=== PATIENT | male | born 1955 | race Caucasian/White ===

== ENCOUNTER 2017-02-11 00:19 | Inpatient (IN) | payer MEDICAID ==
[2017-02-11 01:26] LABS: BASO % 0.1 % (0-2); HCT-HEMATOCRIT 32.8 % (36.0-53.5); HGB-HEMOGLOBIN 11.2 gm/dl (13.5-17.0); IMMATURE GRANULOCYTES ABSOLUTE 0.07 tho/cmm (0-0.03); IMMATURE GRANULOCYTES PERCENT 0.5 % (0-0.3); LYMPH % 3.8 % (20-45); LYMPH ABSOLUTE COUNT 0.6 tho/cmm (0.8-4.5); MCH (MEAN CORPUSCULAR HGB) 29.6 pg (28.0-32.0); MCHC MEAN CORPUSCULAR HGB CONC 34.1 % (32.0-36.0); MCV (MEAN CELL VOLUME) 86.5 fl (82.0-96.0); MONO % 4.5 % (0-12); MONOCYTE ABSOLUTE COUNT 0.7 tho/cmm (0.0-1.2); NEUTROPHIL ABSOLUTE COUNT 13.8 tho/cmm (1.6-8.0); NEUTROPHIL-AUTOMATED 13.8 tho/cmm (1.6-8.0); NEUTROPHILS % 91.1 % (40-80); PLATELET COUNT 189 tho/cmm (150-450); RED BLOOD COUNT 3.79 mil/cmm (4.40-5.70); RED CELL DISTRIBUTION WIDTH 14.3 % (12.4-16.4); WHITE BLOOD COUNT 15.2 tho/cmm (4.0-10.0)
[2017-02-11 01:29] LABS: ABG CO2 ARTERIAL 19 mmol/L (21-27); ARTERIAL BLD GAS O2 SATURATION 93 % (95-98); ARTERIAL BLOOD GAS PCO2 27 mmHg (32-45); ARTERIAL PO2 63 mmHg (70-100); BICARBONATE 19 mmol/L (21-28); BLOOD GAS BASE EXCESS -4 mM/L (-/+3); PH 7.45 Units (7.35-7.45)
[2017-02-11 01:32] LABS: INR 1.2 INR (0.9-1.1); PROTHROMBIN TIME 13.8 SECONDS (9.0-13.6)
[2017-02-11 01:41] LABS: ALB/GLOB RATIO 0.6 (0.8-2.0); ALBUMIN 2.4 g/dl (3.5-5.0); ALKALINE PHOSPHATASE 71 U/L (33-138); ALT/SGPT 55 U/L (12-78); ANION GAP 18 mmol/L (0-20); AST/SGOT 137 U/L (10-40); BILIRUBIN,TOTAL 0.8 mg/dl (0.0-1.5); BLOOD UREA NITROGEN 47 mg/dl (6-24); CALCIUM 7.6 mg/dl (8.5-10.5); CARBON DIOXIDE-VENOUS 19 mmol/L (22-32); CHLORIDE 106 mmol/l (96-110); CREATININE 1.77 mg/dl (0.60-1.30); GLUCOSE 185 mg/dL (70-110); POTASSIUM 4.2 mmol/L (3.7-5.1); SODIUM 139 mmol/L (135-145); eGFR VALUE FOR BLACK 47 mL/Min
[2017-02-11 02:05] LABS: PROCALCITONIN 31.96 ng/ml (0.05-0.09)
[2017-02-11] MEDS ORDERED: ASPIRIN81 M1 PO (03:11)
[2017-02-11] MEDS ORDERED: ACTOS30 M1 PO (03:11)
[2017-02-11] MEDS ORDERED: CERTAVITE-ANTI1 EACH PO (03:13)
[2017-02-11] MEDS ORDERED: CLOZARIL100 M1 PO ×2 (03:13→03:14)
[2017-02-11] MEDS ORDERED: COLACE100 M1 PO (03:14)
[2017-02-11] MEDS ORDERED: FLONASE ALLERG9.9 ML (03:16)
[2017-02-11] MEDS ORDERED: CYCLOBENZAPRINE5 M1 PO (03:16)
[2017-02-11] MEDS ORDERED: HYDROCHLOROTH12.5 M2 PO (03:17)
[2017-02-11] MEDS ORDERED: HYDROCORTISONE30 G8 (03:18)
[2017-02-11] MEDS ORDERED: VISTARIL25 M1 PO (03:20)
[2017-02-11] MEDS ORDERED: KENALOG 0.1% CREAM (03:21)
[2017-02-11] MEDS ORDERED: [UNRECOGNIZED DRUG - OTHER] (03:22)
[2017-02-11] MEDS ORDERED: GLUCOPHAGE500 M3 PO (03:24)
[2017-02-11] MEDS ORDERED: METAMUCIL660 GM (03:24)
[2017-02-11] MEDS ORDERED: MILK OF MAGNESIA PO (03:26)
[2017-02-11] MEDS ORDERED: MOBIC7.5 M2 PO (03:26)
[2017-02-11] MEDS ORDERED: NASONEX17 G1 (03:28)
[2017-02-11] MEDS ORDERED: DAILY MULTIPLE1 EAC2 PO (03:28)
[2017-02-11] MEDS ORDERED: PROAIR HFA8.5 GM IH (03:29)
[2017-02-11] MEDS ORDERED: TYLENOL EXTRA500 M1 PO (03:30)
[2017-02-11] MEDS ORDERED: TRANXENE T PO (03:30)
[2017-02-11] MEDS ORDERED: ASTELIN SPRAY (03:32)
[2017-02-11 04:33] LABS: URINE BILIRUBIN NEGATIVE (NEG); URINE BLOOD LARGE (NEG); URINE GLUCOSE (UA) NEGATIVE (NEG); URINE KETONE SMALL (NEG); URINE LEUKOCYTE ESTERASE NEGATIVE (NEG); URINE NITRITE NEGATIVE (NEG); URINE PROTEIN MODERATE (NEG); URINE SPECIFIC GRAVITY 1.015 (1.003-1.030)
[2017-02-11 04:37] LABS: URINE APPEARANCE HAZY; URINE COLOR YELLOW
[2017-02-11 04:39] LABS: URINE EPITHELIAL CELLS 0 /[HPF] (0-10); URINE WBC 0-1 /[HPF] (0-5)
[2017-02-11 05:30] LABS: BASO % 0.1 % (0-2); HGB-HEMOGLOBIN 10.9 gm/dl (13.5-17.0); IMMATURE GRANULOCYTES ABSOLUTE 0.04 tho/cmm (0-0.03); IMMATURE GRANULOCYTES PERCENT 0.3 % (0-0.3); LYMPH % 3.9 % (20-45); LYMPH ABSOLUTE COUNT 0.5 tho/cmm (0.8-4.5); MCH (MEAN CORPUSCULAR HGB) 29.5 pg (28.0-32.0); MCHC MEAN CORPUSCULAR HGB CONC 34.1 % (32.0-36.0); MCV (MEAN CELL VOLUME) 86.5 fl (82.0-96.0); MEAN PLATELET VOLUME 9.6 cmc (9.4-12.4); MONO % 5.5 % (0-12); MONOCYTE ABSOLUTE COUNT 0.8 tho/cmm (0.0-1.2); NEUTROPHIL ABSOLUTE COUNT 12.5 tho/cmm (1.6-8.0); NEUTROPHIL-AUTOMATED 12.5 tho/cmm (1.6-8.0); NEUTROPHILS % 90.2 % (40-80); PLATELET COUNT 176 tho/cmm (150-450); RED CELL DISTRIBUTION WIDTH 14.5 % (12.4-16.4); WHITE BLOOD COUNT 13.9 tho/cmm (4.0-10.0)
[2017-02-11 05:41] LABS: ANION GAP 15 mmol/L (0-20); BLOOD UREA NITROGEN 49 mg/dl (6-24); CALCIUM 7.7 mg/dl (8.5-10.5); CARBON DIOXIDE-VENOUS 20 mmol/L (22-32); CHLORIDE 105 mmol/l (96-110); CREATININE 1.48 mg/dl (0.60-1.30); GLUCOSE 188 mg/dL (70-110); MAGNESIUM 3.1 mg/dl (1.8-2.6); PHOSPHOROUS 2.9 mg/dl (2.5-4.9); SODIUM 136 mmol/L (135-145); eGFR VALUE FOR BLACK 59 mL/Min
[2017-02-11 06:07] LABS: ABG CO2 ARTERIAL 21 mmol/L (21-27); ARTERIAL BLD GAS O2 SATURATION 96 % (95-98); ARTERIAL BLOOD GAS PCO2 31 mmHg (32-45); BICARBONATE 20 mmol/L (21-28); BLOOD GAS BASE EXCESS -4 mM/L (-/+3); PH 7.42 Units (7.35-7.45)
[2017-02-11 06:08] LABS: ARTERIAL PO2 81 mmHg (70-100)
[2017-02-12 07:58] LABS: BASO % 0.1 % (0-2); HCT-HEMATOCRIT 32.8 % (36.0-53.5); IMMATURE GRANULOCYTES ABSOLUTE 0.15 tho/cmm (0-0.03); IMMATURE GRANULOCYTES PERCENT 1.1 % (0-0.3); LYMPH % 3.3 % (20-45); LYMPH ABSOLUTE COUNT 0.4 tho/cmm (0.8-4.5); MCH (MEAN CORPUSCULAR HGB) 29.3 pg (28.0-32.0); MCHC MEAN CORPUSCULAR HGB CONC 33.5 % (32.0-36.0); MCV (MEAN CELL VOLUME) 87.5 fl (82.0-96.0); MONO % 5.7 % (0-12); MONOCYTE ABSOLUTE COUNT 0.8 tho/cmm (0.0-1.2); NEUTROPHIL ABSOLUTE COUNT 11.9 tho/cmm (1.6-8.0); NEUTROPHIL-AUTOMATED 11.9 tho/cmm (1.6-8.0); NEUTROPHILS % 89.8 % (40-80); PLATELET COUNT 204 tho/cmm (150-450); RED BLOOD COUNT 3.75 mil/cmm (4.40-5.70); RED CELL DISTRIBUTION WIDTH 14.9 % (12.4-16.4); WHITE BLOOD COUNT 13.3 tho/cmm (4.0-10.0)
[2017-02-12 08:10] LABS: ANION GAP 14 mmol/L (0-20); BLOOD UREA NITROGEN 39 mg/dl (6-24); CALCIUM 7.9 mg/dl (8.5-10.5); CARBON DIOXIDE-VENOUS 20 mmol/L (22-32); CHLORIDE 109 mmol/l (96-110); CREATININE 1.06 mg/dl (0.60-1.30); GLUCOSE 221 mg/dL (70-110); POTASSIUM 4.2 mmol/L (3.7-5.1); SODIUM 139 mmol/L (135-145); eGFR VALUE FOR BLACK 88 mL/Min
[2017-02-12 11:18] LABS: C-REACTIVE PROTEIN 14.9 mg/dl (0-0.9)
[2017-02-12 11:30] LABS: CREATINE PHOSPHOKINASE (CPK) 1586 U/L (35-232)
[2017-02-12 11:31] LABS: PROCALCITONIN 7.34 ng/ml (0.05-0.09)
[2017-02-13 05:46] LABS: HCT-HEMATOCRIT 32.7 % (36.0-53.5); HGB-HEMOGLOBIN 10.8 gm/dl (13.5-17.0); MCV (MEAN CELL VOLUME) 87.9 fl (82.0-96.0); MEAN PLATELET VOLUME 9.9 cmc (9.4-12.4); NEUTROPHIL-AUTOMATED 12.7 tho/cmm (1.6-8.0); PLATELET COUNT 210 tho/cmm (150-450); RED BLOOD COUNT 3.72 mil/cmm (4.40-5.70); RED CELL DISTRIBUTION WIDTH 15.1 % (12.4-16.4); WHITE BLOOD COUNT 14.9 tho/cmm (4.0-10.0)
[2017-02-13 05:57] LABS: ALB/GLOB RATIO 0.4 (0.8-2.0); ALBUMIN 1.9 g/dl (3.5-5.0); ALKALINE PHOSPHATASE 83 U/L (33-138); ALT/SGPT 58 U/L (12-78); ANION GAP 12 mmol/L (0-20); AST/SGOT 56 U/L (10-40); BILIRUBIN,TOTAL 0.5 mg/dl (0.0-1.5); BLOOD UREA NITROGEN 34 mg/dl (6-24); CALCIUM 7.5 mg/dl (8.5-10.5); CARBON DIOXIDE-VENOUS 22 mmol/L (22-32); CHLORIDE 105 mmol/l (96-110); CREATININE 0.87 mg/dl (0.60-1.30); GLUCOSE 200 mg/dL (70-110); POTASSIUM 4.2 mmol/L (3.7-5.1); SODIUM 135 mmol/L (135-145); eGFR VALUE FOR BLACK >90 mL/Min
[2017-02-13 06:03] LABS: C-REACTIVE PROTEIN 23.7 mg/dl (0-0.9)
[2017-02-13 06:31] LABS: PROCALCITONIN 9.37 ng/ml (0.05-0.09)
[2017-02-13 09:45] LABS: BAND % 48 % (0-20); BAND ABSOLUTE COUNT 7.2 tho/cmm (0-2.0)
[2017-02-14 05:59] LABS: HCT-HEMATOCRIT 33.2 % (36.0-53.5); MCH (MEAN CORPUSCULAR HGB) 28.9 pg (28.0-32.0); MCHC MEAN CORPUSCULAR HGB CONC 33.1 % (32.0-36.0); MCV (MEAN CELL VOLUME) 87.4 fl (82.0-96.0); MEAN PLATELET VOLUME 9.8 cmc (9.4-12.4); NEUTROPHIL-AUTOMATED 19.5 tho/cmm (1.6-8.0); PLATELET COUNT 286 tho/cmm (150-450); RED CELL DISTRIBUTION WIDTH 15.1 % (12.4-16.4)
[2017-02-14 06:08] LABS: WHITE BLOOD COUNT 22.7 tho/cmm (4.0-10.0)
[2017-02-14 06:19] LABS: ALBUMIN 1.8 g/dl (3.5-5.0); ANION GAP 11 mmol/L (0-20); BLOOD UREA NITROGEN 35 mg/dl (6-24); C-REACTIVE PROTEIN 16.9 mg/dl (0-0.9); CALCIUM 7.4 mg/dl (8.5-10.5); CARBON DIOXIDE-VENOUS 24 mmol/L (22-32); CHLORIDE 106 mmol/l (96-110); CREATININE 0.87 mg/dl (0.60-1.30); GLUCOSE 213 mg/dL (70-110); PHOSPHOROUS 1.9 mg/dl (2.5-4.9); POTASSIUM 4.2 mmol/L (3.7-5.1); PREALBUMIN 4.8 mg/dl (20.0-40.0); SODIUM 137 mmol/L (135-145); eGFR VALUE FOR BLACK >90 mL/Min
[2017-02-14 06:20] LABS: CREATINE PHOSPHOKINASE (CPK) 512 U/L (35-232)
[2017-02-14 06:23] LABS: PROCALCITONIN 6.21 ng/ml (0.05-0.09)
[2017-02-14 08:35] LABS: BAND % 47 % (0-20); BAND ABSOLUTE COUNT 10.7 tho/cmm (0-2.0)
[2017-02-15 05:45] LABS: HCT-HEMATOCRIT 34.2 % (36.0-53.5); HGB-HEMOGLOBIN 11.2 gm/dl (13.5-17.0); MCH (MEAN CORPUSCULAR HGB) 28.6 pg (28.0-32.0); MCHC MEAN CORPUSCULAR HGB CONC 32.7 % (32.0-36.0); MCV (MEAN CELL VOLUME) 87.5 fl (82.0-96.0); MEAN PLATELET VOLUME 9.4 cmc (9.4-12.4); NEUTROPHIL-AUTOMATED 26.5 tho/cmm (1.6-8.0); PLATELET COUNT 344 tho/cmm (150-450); RED BLOOD COUNT 3.91 mil/cmm (4.40-5.70); RED CELL DISTRIBUTION WIDTH 15.3 % (12.4-16.4); WHITE BLOOD COUNT 31.8 tho/cmm (4.0-10.0)
[2017-02-15 06:01] LABS: C-REACTIVE PROTEIN 12.5 mg/dl (0-0.9); CREATININE 0.88 mg/dl (0.60-1.30); eGFR VALUE FOR BLACK >90 mL/Min
[2017-02-15 06:12] LABS: CREATINE PHOSPHOKINASE (CPK) 315 U/L (35-232)
[2017-02-15 06:14] LABS: BAND % 49 % (0-20); BAND ABSOLUTE COUNT 15.6 tho/cmm (0-2.0)
[2017-02-15 06:22] LABS: PROCALCITONIN 3.94 ng/ml (0.05-0.09)
[2017-02-16 05:21] LABS: HGB-HEMOGLOBIN 11.4 gm/dl (13.5-17.0); MCH (MEAN CORPUSCULAR HGB) 29.2 pg (28.0-32.0); MCHC MEAN CORPUSCULAR HGB CONC 32.6 % (32.0-36.0); MCV (MEAN CELL VOLUME) 89.5 fl (82.0-96.0); MEAN PLATELET VOLUME 9.7 cmc (9.4-12.4); NEUTROPHIL-AUTOMATED 27.5 tho/cmm (1.6-8.0); PLATELET COUNT 460 tho/cmm (150-450); RED BLOOD COUNT 3.91 mil/cmm (4.40-5.70); RED CELL DISTRIBUTION WIDTH 15.2 % (12.4-16.4); WHITE BLOOD COUNT 31.7 tho/cmm (4.0-10.0)
[2017-02-16 05:33] LABS: C-REACTIVE PROTEIN 8.7 mg/dl (0-0.9)
[2017-02-16 05:39] LABS: CREATINE PHOSPHOKINASE (CPK) 225 U/L (35-232)
[2017-02-16 05:52] LABS: PROCALCITONIN 2.22 ng/ml (0.05-0.09)
[2017-02-16 06:55] LABS: BAND % 25 % (0-20); BAND ABSOLUTE COUNT 7.9 tho/cmm (0-2.0)
[2017-02-16 06:56] LABS: WBC MORPHOLOGY TOXIC GRANULATION
[2017-02-17 04:28] LABS: HCT-HEMATOCRIT 34.1 % (36.0-53.5); HGB-HEMOGLOBIN 11.1 gm/dl (13.5-17.0); MCHC MEAN CORPUSCULAR HGB CONC 32.6 % (32.0-36.0); MEAN PLATELET VOLUME 9.6 cmc (9.4-12.4); PLATELET COUNT 393 tho/cmm (150-450); RED BLOOD COUNT 3.83 mil/cmm (4.40-5.70); RED CELL DISTRIBUTION WIDTH 15.4 % (12.4-16.4); WHITE BLOOD COUNT 25.8 tho/cmm (4.0-10.0)
[2017-02-17 05:06] LABS: C-REACTIVE PROTEIN 4.4 mg/dl (0-0.9)
[2017-02-17 05:19] LABS: CREATINE PHOSPHOKINASE (CPK) 161 U/L (35-232)
[2017-02-17 06:00] LABS: PROCALCITONIN 1.05 ng/ml (0.05-0.09)
[2017-02-17 06:49] LABS: BAND % 29 % (0-20); BAND ABSOLUTE COUNT 7.5 tho/cmm (0-2.0)
[2017-02-17 06:50] LABS: WBC MORPHOLOGY TOXIC GRANULATION
[2017-02-18 04:50] LABS: HCT-HEMATOCRIT 34.3 % (36.0-53.5); HGB-HEMOGLOBIN 10.9 gm/dl (13.5-17.0); MCH (MEAN CORPUSCULAR HGB) 28.5 pg (28.0-32.0); MCHC MEAN CORPUSCULAR HGB CONC 31.8 % (32.0-36.0); MCV (MEAN CELL VOLUME) 89.8 fl (82.0-96.0); MEAN PLATELET VOLUME 9.5 cmc (9.4-12.4); NEUTROPHIL-AUTOMATED 17.4 tho/cmm (1.6-8.0); PLATELET COUNT 404 tho/cmm (150-450); RED BLOOD COUNT 3.82 mil/cmm (4.40-5.70); RED CELL DISTRIBUTION WIDTH 15.5 % (12.4-16.4); WHITE BLOOD COUNT 22.3 tho/cmm (4.0-10.0)
[2017-02-18 05:01] LABS: C-REACTIVE PROTEIN 2.7 mg/dl (0-0.9)
[2017-02-18 05:12] LABS: BASO % 0.3 % (0-2); BASO ABSOLUTE COUNT 0.1 tho/cmm (0.0-0.2); IMMATURE GRANULOCYTES PERCENT 7.2 % (0-0.3); LYMPH ABSOLUTE COUNT 1.6 tho/cmm (0.8-4.5); MONO % 7.2 % (0-12); MONOCYTE ABSOLUTE COUNT 1.6 tho/cmm (0.0-1.2); NEUTROPHIL ABSOLUTE COUNT 17.4 tho/cmm (1.6-8.0); NEUTROPHILS % 78.3 % (40-80)
[2017-02-19 04:55] LABS: HCT-HEMATOCRIT 33.4 % (36.0-53.5); HGB-HEMOGLOBIN 10.7 gm/dl (13.5-17.0); MCH (MEAN CORPUSCULAR HGB) 28.7 pg (28.0-32.0); MCV (MEAN CELL VOLUME) 89.5 fl (82.0-96.0); MEAN PLATELET VOLUME 9.7 cmc (9.4-12.4); NEUTROPHIL-AUTOMATED 16.5 tho/cmm (1.6-8.0); PLATELET COUNT 400 tho/cmm (150-450); RED BLOOD COUNT 3.73 mil/cmm (4.40-5.70); RED CELL DISTRIBUTION WIDTH 15.2 % (12.4-16.4); WHITE BLOOD COUNT 20.4 tho/cmm (4.0-10.0)
[2017-02-19 05:04] LABS: BASO % 0.1 % (0-2); IMMATURE GRANULOCYTES ABSOLUTE 1.21 tho/cmm (0-0.03); IMMATURE GRANULOCYTES PERCENT 5.9 % (0-0.3); LYMPH % 6.7 % (20-45); LYMPH ABSOLUTE COUNT 1.4 tho/cmm (0.8-4.5); MONO % 6.8 % (0-12); MONOCYTE ABSOLUTE COUNT 1.4 tho/cmm (0.0-1.2); NEUTROPHIL ABSOLUTE COUNT 16.5 tho/cmm (1.6-8.0); NEUTROPHILS % 80.5 % (40-80)
[2017-02-19 05:10] LABS: C-REACTIVE PROTEIN 2.1 mg/dl (0-0.9)
[2017-02-19 07:52] LABS: WBC MORPHOLOGY TOXIC GRANULATION
[2017-02-19 12:02] LABS: BASO % 0.1 % (0-2); HCT-HEMATOCRIT 34.1 % (36.0-53.5); HGB-HEMOGLOBIN 11.2 gm/dl (13.5-17.0); IMMATURE GRANULOCYTES ABSOLUTE 0.96 tho/cmm (0-0.03); IMMATURE GRANULOCYTES PERCENT 4.9 % (0-0.3); LYMPH % 6.5 % (20-45); LYMPH ABSOLUTE COUNT 1.3 tho/cmm (0.8-4.5); MCH (MEAN CORPUSCULAR HGB) 29.2 pg (28.0-32.0); MCHC MEAN CORPUSCULAR HGB CONC 32.8 % (32.0-36.0); MCV (MEAN CELL VOLUME) 88.8 fl (82.0-96.0); MEAN PLATELET VOLUME 9.4 cmc (9.4-12.4); MONO % 6.8 % (0-12); MONOCYTE ABSOLUTE COUNT 1.3 tho/cmm (0.0-1.2); NEUTROPHILS % 81.7 % (40-80); PLATELET COUNT 362 tho/cmm (150-450); RED BLOOD COUNT 3.84 mil/cmm (4.40-5.70); RED CELL DISTRIBUTION WIDTH 15.3 % (12.4-16.4); WHITE BLOOD COUNT 19.6 tho/cmm (4.0-10.0)
[2017-02-19 12:07] LABS: INR 1.2 INR (0.9-1.1); PROTHROMBIN TIME 13.8 SECONDS (9.0-13.6)
[2017-02-20 04:10] LABS: HCT-HEMATOCRIT 32.8 % (36.0-53.5); HGB-HEMOGLOBIN 10.7 gm/dl (13.5-17.0); MCHC MEAN CORPUSCULAR HGB CONC 32.6 % (32.0-36.0); MCV (MEAN CELL VOLUME) 88.9 fl (82.0-96.0); MEAN PLATELET VOLUME 9.4 cmc (9.4-12.4); NEUTROPHIL-AUTOMATED 10.8 tho/cmm (1.6-8.0); PLATELET COUNT 372 tho/cmm (150-450); RED BLOOD COUNT 3.69 mil/cmm (4.40-5.70)
[2017-02-20 04:23] LABS: ALBUMIN 2.1 g/dl (3.5-5.0); ANION GAP 11 mmol/L (0-20); BLOOD UREA NITROGEN 16 mg/dl (6-24); C-REACTIVE PROTEIN 1.9 mg/dl (0-0.9); CALCIUM 7.6 mg/dl (8.5-10.5); CARBON DIOXIDE-VENOUS 27 mmol/L (22-32); CHLORIDE 107 mmol/l (96-110); CREATININE 0.54 mg/dl (0.60-1.30); GLUCOSE 128 mg/dL (70-110); PHOSPHOROUS 3.5 mg/dl (2.5-4.9); POTASSIUM 3.4 mmol/L (3.7-5.1); SODIUM 142 mmol/L (135-145); eGFR VALUE FOR BLACK >90 mL/Min
[2017-02-20 04:59] LABS: CREATINE PHOSPHOKINASE (CPK) 147 U/L (35-232)
[2017-02-20 07:13] LABS: BAND % 38 % (0-20); BAND ABSOLUTE COUNT 5.3 tho/cmm (0-2.0)
[2017-02-20 07:15] LABS: WBC MORPHOLOGY TOXIC GRANULATION
[2017-02-22 05:57] LABS: BASO % 0.3 % (0-2); HCT-HEMATOCRIT 31.6 % (36.0-53.5); HGB-HEMOGLOBIN 10.2 gm/dl (13.5-17.0); IMMATURE GRANULOCYTES ABSOLUTE 0.21 tho/cmm (0-0.03); IMMATURE GRANULOCYTES PERCENT 1.9 % (0-0.3); LYMPH % 12.3 % (20-45); LYMPH ABSOLUTE COUNT 1.4 tho/cmm (0.8-4.5); MCH (MEAN CORPUSCULAR HGB) 28.6 pg (28.0-32.0); MCHC MEAN CORPUSCULAR HGB CONC 32.3 % (32.0-36.0); MCV (MEAN CELL VOLUME) 88.5 fl (82.0-96.0); MEAN PLATELET VOLUME 9.9 cmc (9.4-12.4); MONO % 7.6 % (0-12); MONOCYTE ABSOLUTE COUNT 0.8 tho/cmm (0.0-1.2); NEUTROPHIL ABSOLUTE COUNT 8.6 tho/cmm (1.6-8.0); NEUTROPHIL-AUTOMATED 8.6 tho/cmm (1.6-8.0); NEUTROPHILS % 77.9 % (40-80); PLATELET COUNT 343 tho/cmm (150-450); RED BLOOD COUNT 3.57 mil/cmm (4.40-5.70); RED CELL DISTRIBUTION WIDTH 14.9 % (12.4-16.4)
[2017-02-22 06:13] LABS: ALB/GLOB RATIO 0.6 (0.8-2.0); ALBUMIN 2.1 g/dl (3.5-5.0); ALKALINE PHOSPHATASE 61 U/L (33-138); ALT/SGPT 28 U/L (12-78); ANION GAP 10 mmol/L (0-20); AST/SGOT 22 U/L (10-40); BILIRUBIN,TOTAL 0.2 mg/dl (0.0-1.5); BLOOD UREA NITROGEN 12 mg/dl (6-24); C-REACTIVE PROTEIN 1.2 mg/dl (0-0.9); CALCIUM 7.7 mg/dl (8.5-10.5); CARBON DIOXIDE-VENOUS 29 mmol/L (22-32); CHLORIDE 100 mmol/l (96-110); CREATININE 0.49 mg/dl (0.60-1.30); GLUCOSE 148 mg/dL (70-110); PHOSPHOROUS 3.5 mg/dl (2.5-4.9); POTASSIUM 3.5 mmol/L (3.7-5.1); SODIUM 135 mmol/L (135-145); eGFR VALUE FOR BLACK >90 mL/Min
[2017-02-22 07:31] LABS: PROCALCITONIN 0.11 ng/ml (0.05-0.09)
[2017-02-24 05:13] LABS: BASO % 0.3 % (0-2); HGB-HEMOGLOBIN 10.4 gm/dl (13.5-17.0); LYMPH % 11.7 % (20-45); LYMPH ABSOLUTE COUNT 1.2 tho/cmm (0.8-4.5); MCH (MEAN CORPUSCULAR HGB) 28.6 pg (28.0-32.0); MCHC MEAN CORPUSCULAR HGB CONC 32.5 % (32.0-36.0); MCV (MEAN CELL VOLUME) 87.9 fl (82.0-96.0); MEAN PLATELET VOLUME 9.3 cmc (9.4-12.4); MONO % 7.8 % (0-12); MONOCYTE ABSOLUTE COUNT 0.8 tho/cmm (0.0-1.2); NEUTROPHIL ABSOLUTE COUNT 8.1 tho/cmm (1.6-8.0); NEUTROPHIL-AUTOMATED 8.1 tho/cmm (1.6-8.0); NEUTROPHILS % 79.2 % (40-80); PLATELET COUNT 342 tho/cmm (150-450); RED BLOOD COUNT 3.64 mil/cmm (4.40-5.70); RED CELL DISTRIBUTION WIDTH 14.9 % (12.4-16.4); WHITE BLOOD COUNT 10.2 tho/cmm (4.0-10.0)
[2017-02-25] MEDS ORDERED: SINGULAIR10 M1 PO (07:53)
[2017-02-25] MEDS ORDERED: LISINOPRIL10 M1 PO (07:53)
[2017-02-25] MEDS ORDERED: ZOCOR10 M1 PO (07:54)
[2017-02-26 05:44] LABS: BASO % 0.3 % (0-2); HCT-HEMATOCRIT 31.9 % (36.0-53.5); HGB-HEMOGLOBIN 10.3 gm/dl (13.5-17.0); IMMATURE GRANULOCYTES ABSOLUTE 0.05 tho/cmm (0-0.03); IMMATURE GRANULOCYTES PERCENT 0.5 % (0-0.3); LYMPH % 12.7 % (20-45); LYMPH ABSOLUTE COUNT 1.2 tho/cmm (0.8-4.5); MCH (MEAN CORPUSCULAR HGB) 28.9 pg (28.0-32.0); MCHC MEAN CORPUSCULAR HGB CONC 32.3 % (32.0-36.0); MCV (MEAN CELL VOLUME) 89.4 fl (82.0-96.0); MEAN PLATELET VOLUME 9.3 cmc (9.4-12.4); MONO % 8.9 % (0-12); MONOCYTE ABSOLUTE COUNT 0.8 tho/cmm (0.0-1.2); NEUTROPHIL ABSOLUTE COUNT 7.1 tho/cmm (1.6-8.0); NEUTROPHIL-AUTOMATED 7.1 tho/cmm (1.6-8.0); NEUTROPHILS % 77.6 % (40-80); PLATELET COUNT 350 tho/cmm (150-450); RED BLOOD COUNT 3.57 mil/cmm (4.40-5.70); RED CELL DISTRIBUTION WIDTH 15.3 % (12.4-16.4); WHITE BLOOD COUNT 9.2 tho/cmm (4.0-10.0)
[2017-02-26 06:01] LABS: ALB/GLOB RATIO 0.5 (0.8-2.0); ALBUMIN 2.2 g/dl (3.5-5.0); ALKALINE PHOSPHATASE 65 U/L (33-138); ALT/SGPT 28 U/L (12-78); ANION GAP 10 mmol/L (0-20); AST/SGOT 20 U/L (10-40); BILIRUBIN,TOTAL 0.3 mg/dl (0.0-1.5); BLOOD UREA NITROGEN 9 mg/dl (6-24); C-REACTIVE PROTEIN 2.3 mg/dl (0-0.9); CARBON DIOXIDE-VENOUS 32 mmol/L (22-32); CHLORIDE 104 mmol/l (96-110); CREATININE 0.62 mg/dl (0.60-1.30); GLUCOSE 145 mg/dL (70-110); POTASSIUM 3.7 mmol/L (3.7-5.1); SODIUM 142 mmol/L (135-145); eGFR VALUE FOR BLACK >90 mL/Min
[2017-02-28 04:47] LABS: BASO % 0.5 % (0-2); EOS % 0.1 % (0-7); HCT-HEMATOCRIT 31.2 % (36.0-53.5); HGB-HEMOGLOBIN 10.1 gm/dl (13.5-17.0); IMMATURE GRANULOCYTES ABSOLUTE 0.03 tho/cmm (0-0.03); IMMATURE GRANULOCYTES PERCENT 0.4 % (0-0.3); LYMPH % 19.8 % (20-45); LYMPH ABSOLUTE COUNT 1.5 tho/cmm (0.8-4.5); MCH (MEAN CORPUSCULAR HGB) 28.9 pg (28.0-32.0); MCHC MEAN CORPUSCULAR HGB CONC 32.4 % (32.0-36.0); MCV (MEAN CELL VOLUME) 89.4 fl (82.0-96.0); MONO % 8.4 % (0-12); MONOCYTE ABSOLUTE COUNT 0.6 tho/cmm (0.0-1.2); NEUTROPHIL ABSOLUTE COUNT 5.3 tho/cmm (1.6-8.0); NEUTROPHIL-AUTOMATED 5.3 tho/cmm (1.6-8.0); NEUTROPHILS % 70.8 % (40-80); PLATELET COUNT 321 tho/cmm (150-450); RED BLOOD COUNT 3.49 mil/cmm (4.40-5.70); RED CELL DISTRIBUTION WIDTH 15.2 % (12.4-16.4); WHITE BLOOD COUNT 7.5 tho/cmm (4.0-10.0)
[2017-03-02 05:22] LABS: HGB-HEMOGLOBIN 10.5 gm/dl (13.5-17.0); PLATELET COUNT 270 tho/cmm (150-450)
[2017-03-03 05:08] LABS: BASO % 0.6 % (0-2); HCT-HEMATOCRIT 33.5 % (36.0-53.5); HGB-HEMOGLOBIN 10.9 gm/dl (13.5-17.0); IMMATURE GRANULOCYTES ABSOLUTE 0.03 tho/cmm (0-0.03); IMMATURE GRANULOCYTES PERCENT 0.4 % (0-0.3); LYMPH % 22.3 % (20-45); LYMPH ABSOLUTE COUNT 1.6 tho/cmm (0.8-4.5); MCH (MEAN CORPUSCULAR HGB) 28.8 pg (28.0-32.0); MCHC MEAN CORPUSCULAR HGB CONC 32.5 % (32.0-36.0); MCV (MEAN CELL VOLUME) 88.6 fl (82.0-96.0); MEAN PLATELET VOLUME 8.7 cmc (9.4-12.4); MONO % 7.6 % (0-12); MONOCYTE ABSOLUTE COUNT 0.5 tho/cmm (0.0-1.2); NEUTROPHIL ABSOLUTE COUNT 4.8 tho/cmm (1.6-8.0); NEUTROPHIL-AUTOMATED 4.8 tho/cmm (1.6-8.0); NEUTROPHILS % 69.1 % (40-80); PLATELET COUNT 273 tho/cmm (150-450); RED BLOOD COUNT 3.78 mil/cmm (4.40-5.70); RED CELL DISTRIBUTION WIDTH 14.8 % (12.4-16.4)
[2017-03-04 15:49] LABS: CREATININE 0.84 mg/dl (0.60-1.30); eGFR VALUE FOR BLACK >90 mL/Min
[2017-03-05 12:48] LABS: INR 0.9 INR (0.9-1.1); PROTHROMBIN TIME 10.6 SECONDS (9.0-13.6)
[2017-03-05 14:29] LABS: WHITE BLOOD COUNT 4.6 tho/cmm (4.0-10.0)
[2017-03-05 14:30] LABS: HCT-HEMATOCRIT 35.8 % (36.0-53.5); HGB-HEMOGLOBIN 11.8 gm/dl (13.5-17.0); LYMPH % 28.4 % (20-45); LYMPH ABSOLUTE COUNT 1.3 tho/cmm (0.8-4.5); MCH (MEAN CORPUSCULAR HGB) 29.3 pg (28.0-32.0); MCV (MEAN CELL VOLUME) 89.1 fl (82.0-96.0); MEAN PLATELET VOLUME 8.9 cmc (9.4-12.4); MONO % 10.9 % (0-12); MONOCYTE ABSOLUTE COUNT 0.5 tho/cmm (0.0-1.2); NEUTROPHIL ABSOLUTE COUNT 2.7 tho/cmm (1.6-8.0); NEUTROPHIL-AUTOMATED 2.7 tho/cmm (1.6-8.0); NEUTROPHILS % 58.7 % (40-80); PLATELET COUNT 307 tho/cmm (150-450); RED BLOOD COUNT 4.02 mil/cmm (4.40-5.70); RED CELL DISTRIBUTION WIDTH 14.6 % (12.4-16.4)
[2017-03-05 14:31] LABS: BASO ABSOLUTE COUNT 0.1 tho/cmm (0.0-0.2)
[2017-03-08] MEDS ORDERED: BENADRYL ALLERG25 M1 PO (11:02)
[2017-03-08] MEDS ORDERED: DIFLUCAN100 M1 PO (11:06)
[2017-03-09] MEDS ORDERED: LEVAQUIN750 M1 PO (11:23)
[2017-03-09] MEDS ORDERED: CLEOCIN HCL300 M1 PO (11:24)
== END 2017-03-09 14:20 | DRG 602 ==
LOC: BURN 00:19
PROVIDERS: Internal Medicine Infectious Disease; Radiology Diagnostic Radiology; Surgery; ADMIT Surgery
PROC: 02HV33Z Insertion of Infusion Device into Superior Vena Cava, Percutaneous Approach (ICD-10-PCS; 2017-02-11)
PROC: 0W9F30Z Drainage of Abdominal Wall with Drainage Device, Percutaneous Approach (ICD-10-PCS; 2017-03-05)
PROC: 0W9F30Z Drainage of Abdominal Wall with Drainage Device, Percutaneous Approach (ICD-10-PCS; 2017-03-08)
PROC: 0W9F3ZZ Drainage of Abdominal Wall, Percutaneous Approach (ICD-10-PCS; principal; 2017-03-09)
DX: L02.211 Cutaneous abscess of abdominal wall (principal); K65.1 Peritoneal abscess; E43 Unspecified severe protein-calorie malnutrition; Z68.42 Body mass index [BMI] 45.0-49.9, adult; D64.9 Anemia, unspecified; E11.9 Type 2 diabetes mellitus without complications; F17.210 Nicotine dependence, cigarettes, uncomplicated; F19.10 Other psychoactive substance abuse, uncomplicated; E66.01 Morbid (severe) obesity due to excess calories; Z79.4 Long term (current) use of insulin; Z88.0 Allergy status to penicillin; Y04.2XXA Assault by strike against or bumped into by another person, initial encounter
CPT/HCPCS: C1729; C1751; C1769; C9113; G8978-GP-CJ; G8979-GP-CI; J0131; J0610; J1644; J1815; J1956; J2250; J3010; J3370; J3411; J7030; J7040; J7050; Q9967